=== PATIENT | male | born 1975 | race Caucasian/White ===

== ENCOUNTER 2020-05-25 13:27 | Emergency (ER) | payer OTHER, SELFPAY ==
--- NOTE | 2020-05-25 13:36 | ED.GENADULT ---
HPI - General Adult General Chief complaint: Headache Stated complaint: Headache Time Seen by Provider: 05/25/20 13:36 Source: patient Mode of arrival: ambulatory Limitations: no limitations History of Present Illness HPI narrative: 45-year-old male patient presents to the [facility] with complaints of a headache, nasal congestion, runny nose, sinus drainage and a slight cough as well as what he describes as a funny taste in his mouth since last week. Patient states he got increasingly worse on Monday. Patient states he was tested for Covid yesterday and got his test results this morning and was negative. Patient states he has tried some [id number] Mucinex and Sudafed for his symptoms which do relieve his symptoms temporarily. Denies fevers, body aches or chills. Denies chest pain or shortness of breath. Related Data Allergies Allergy/AdvReac Type Severity Reaction Status Date / Time No Known Allergies Allergy Verified 05/25/20 13:39 Review of Systems Review of Systems: Narrative: CONSTITUTIONAL: Denies fever, chills, or sweats. EYES: Denies visual changes, redness, or discharge. ENT: Positive rhinorrhea, congestion, denies sore throat, or otalgia. CARDIOVASCULAR: Denies chest pain, palpitations, or edema. RESPIRATORY: Positive mild cough denies dyspnea. GASTROINTESTINAL: Denies abdominal pain, nausea, vomiting, or diarrhea. GENITOURINARY: Denies dysuria or hematuria. SKIN: Denies rash or itching. MUSCULOSKELETAL: Denies back pain, joint pain, or myalgia. NEUROLOGIC: Positive headache, denies numbness, or weakness. PSYCHIATRIC: Denies anxiety or depression. [facility] Social History Social History Gender identity (if verbalized by the patient): Male Comments At the time of my signature I agree with nursing past medical history, surgical, social, and family history. There is no relevant family history pertinent to the presenting complaint. Exam Narrative: Exam Narrative: GENERAL: Well-appearing, well-nourished, and in no acute distress. HEAD: Normocephalic, atraumatic. Slight tenderness noted over maxillary sinuses. EYES: PERRLA and EOMI. ENT: Nares with erythema and edema noted bilaterally, no rhinorrhea or epistaxis. Mucous membranes moist. Posterior pharynx with no erythema, tonsillectomy, exudates or lesions present. Bilateral TMs are clear with no erythema or foreign bodies to the canal. NECK: Supple. No lymphadenopathy CHEST: Clear to auscultation. No respiratory distress. HEART: Regular rate and rhythm. No murmur heard. Normal peripheral pulses. ABDOMEN: Soft, nontender, nondistended, normal active bowel sounds. EXTREMITIES: Normal range of motion. No edema. SKIN: Warm, dry, no rash. NEURO: No focal deficits. Alert and oriented x3. Course Vital Signs Vital signs: Vital Signs Temperature 37.0 C 05/25/20 13:48 Pulse Rate 89 05/25/20 13:48 Respiratory Rate 16 05/25/20 13:48 Blood Pressure 148/87 H 05/25/20 13:48 Pulse Oximetry 100 05/25/20 13:48 Temperature 37.0 C 05/25/20 13:48 Pulse Rate 89 05/25/20 13:48 Respiratory Rate 16 05/25/20 13:48 Blood Pressure 148/87 H 05/25/20 13:48 Pulse Oximetry 100 05/25/20 13:48 Vital signs reviewed The patient has been informed that they may have pre-hypertension or Hypertension based on a BP reading in the department. I recommend that the patient call the primary care provider listed on their discharge instructions or a physician of their choice this week to arrange follow up for further evaluation of possible pre-hypertension or Hypertension Medical Decision Making Differential Diagnosis Differential Diagnosis: Differential diagnosis: Migraine, cluster headache, tension headache, sinusitis, dental infection, TMJ problems, pseudotumor cerebri, meningitis, encephalitis, giant cell arteritis, glaucoma, subarachnoid hemorrhage, subdural or epidural hematoma, intracranial blee
[2020-05-25 13:48] VITALS: BP 148/87; PULSE 89; RESP 16; TEMP 37; O2SAT 100
[2020-05-26 19:18] LABS: SARS-CoV-2 RNA PCR Negative
== END 2020-05-25 14:20 | disposition home or self-care (01) ==
PROVIDERS: Emergency Provider Nurse Practitioner Family
DX: Z20.822 Contact with and (suspected) exposure to COVID-19 (principal)
CPT/HCPCS: 87804; 99203; C9803; G0463; U0003; U0005

== ENCOUNTER 2021-06-24 15:13 | Outpatient (CLI) | payer OTHER, SELFPAY ==
--- NOTE | ~2021-06-24 | XR_ITS ---
EXAMINATION: SACRUM/COCCYX DATE: 06/24/2021 16:01 INDICATION: Low back pain TECHNIQUE: Three views sacrum/coccyx FINDINGS: 06/24/2021 There is no displaced fracture of the sacrum. The coccyx demonstrates overall normal morphology with out acute angulation. IMPRESSION: 1. No acute displaced osseous abnormality of the sacrum. Suspicion for occult or nondisplaced sacral fracture can either be evaluated with CT or MRI. 2. Grossly normal morphology to the coccyx without acute angulation. However, due to the wide range of normal variation of the coccyx, acute injury would be best evaluated by clinical examination and patient's symptoms. Reviewed, dictated and finalized at location A. MILL TENDER
--- NOTE | ~2021-06-24 | XR_ITS ---
XR hip LT 2V w AP pelvis 06/24/2021 16:02 INDICATION: Left hip pain PROCEDURE: AP pelvis and 2 views left hip COMPARISON: No prior studies for comparison. FINDINGS: Fracture, dislocation or subluxation is not identified. Pelvic rings are intact. Sacral for amen are symmetric. The soft tissues appear within normal limits. No foreign bodies are identified. IMPRESSION: 1: NO ACUTE BONE OR JOINT ABNORMALITY IDENTIFIED. Reviewed, dictated and finalized at location A. LE DBA
--- NOTE | ~2021-06-24 | XR_ITS ---
XR lumbar spine 2-3V 06/24/2021 16:01 Indication: Low back pain and back pain. Left hip pain. Procedure: 3 views lumbar spine Comparison: No prior studies for comparison. Findings: Mild levocurvature of the lumbar spine. Vertebral body heights are maintained. No fracture, subluxation or dislocation. No evidence for spondylolisthesis. Pedicles intact. Sacral foramen are s ymmetric. No evidence for spondylolisthesis or spondylolysis. Impression: 1: Mild levocurvature of the lumbar spine. Reviewed, dictated and finalized at location A. TILE DECORATOR Impression: 1: Mild levocurvature of the lumbar spine.
--- NOTE | ~2021-06-24 | XR_ITS ---
XR cervical spine 4-5V 06/24/2021 16:01 Indication: Neck pain Procedure: 5 views of the cervical spine Comparison: No prior studies for comparison. Findings: No fracture, subluxation or dislocation. Normal cervical alignment. No prevertebral soft ti ssue swelling. Odontoid process within normal limits. Impression: 1: No significant abnormality of the cervical spine. Reviewed, dictated and finalized at location A. T SECURITY GUARD Impression: 1: No significant abnormality of the cervical spine.
== END 2021-06-24 15:14 | disposition home or self-care (01) ==
PROVIDERS: PCP Emergency Medicine; Visit Provider Emergency Medicine
DX: M54.50 Low back pain, unspecified (principal); M53.3 Sacrococcygeal disorders, not elsewhere classified; M43.9 Deforming dorsopathy, unspecified; R20.2 Paresthesia of skin; M25.552 Pain in left hip
CPT/HCPCS: 72050; 72100; 72220; 73502